=== PATIENT | female | born 1975 | race Caucasian/White ===

== ENCOUNTER 2019-02-23 14:31 | Emergency (ER) | payer OTHER ==
[2019-02-23] MEDS ORDERED: Acetaminophen/HYDROcodone 325-5 MG Tab PO ONE (14:32)
[2019-02-23] MEDS ORDERED: Ondansetron 4 MG Tab.DIS PO ONE (14:32)
--- NOTE | 2019-02-23 15:00 | EDM.PDOC ---
ED HPI GENERAL MEDICAL PROBLEM - General Chief Complaint: Back Pain or Injury Stated Complaint: FALL, NECK, BACK PAIN Time Seen by Provider: 02/23/19 14:53 Source of Information: Reports: Patient, EMS History Limitations: Reports: No Limitations - History of Present Illness Onset: Today Onset Date: 02/23/19 Onset Time: 02:00 Location: Reports: Back Quality: Reports: Ache, Sharp, Throbbing Severity: Moderate Improves with: Reports: None Worsens with: Reports: Movement Associated Symptoms: Reports: No Other Symptoms Posterior Neck Pain Score (Numeric/FACES): 8 - Related Data Allergies Allergy/AdvReac Type Severity Reaction Status Date / Time sulfamethoxazole Allergy Renal Verified 02/23/19 14:49 [From Bactrim] Insufficiency trimethoprim [From Bactrim] Allergy Renal Verified 02/23/19 14:49 Insufficiency Home Meds: Home Meds Devil's Claw Extract [Devil's Claw] 10 mg PO BID 02/23/19 [History] ED ROS GENERAL - Review of Systems Review Of Systems: See Below Constitutional: Reports: No Symptoms HEENT: Reports: No Symptoms Respiratory: Reports: No Symptoms Cardiovascular: Reports: No Symptoms Endocrine: Reports: No Symptoms GI/Abdominal: Reports: No Symptoms Musculoskeletal: Reports: Neck Pain, Back Pain, Joint Pain (right shoulder) Skin: Reports: No Symptoms Neurological: Reports: No Symptoms Psychiatric: Reports: No Symptoms Hematologic/Lymphatic: Reports: No Symptoms ED EXAM, UPPER BACK/NECK PAIN - Physical Exam Exam: See Below Exam Limited By: No Limitations General Appearance: Alert, WD/WN, No Apparent Distress Eye Exam: Bilateral Eye: EOMI, PERRL Ears Exam: Normal External Exam, Normal Canal, Hearing Grossly Normal, Normal TMs Nose Exam: Normal Inspection, Normal Mucousa Throat/Mouth Exam: Normal Inspection Head Exam: Atraumatic, Normocephalic Neck Exam: Full Range of Motion, Normal Alignment, Normal Inspection, Paraspinous Muscle Tender Nexus Criteria: No: Posterior, Midline Cervical Tenderness, Evidence of Intoxication, Altered Level of Consciousness, Focal Neurological Deficit, Painful Distraction Injuries Cardiovascular/Respiratory: Regular Rate, Rhythm, No M/R/G, Normal Peripheral Pulses, No JVD, Normal Breath Sounds, No Respiratory Distress GI/Abdominal: Normal Bowel Sounds, Soft, Non-Tender Back Exam: Paraspinal Tenderness (thorasic and cervical spine) Extremities: Normal Inspection, Normal Range of Motion, Normal Capillary Refill , Other (right shoulder tenderness) Neurologic: No Motor/Sensory Deficits, Alert, Normal Mood/Affect, Oriented x 3 DTR: 4+: Patella (R), Patella (L), Achilles (R), Achilles (L) Psychiatric: Normal Affect, Normal Mood Skin Exam: Normal Color, Warm/Dry Course - Vital Signs Last Recorded V/S: Last Vital Signs Temp 97.1 F 02/23/19 14:46 Pulse 101 H 02/23/19 14:46 Resp 16 02/23/19 14:46 BP 124/85 02/23/19 14:46 Pulse Ox 96 02/23/19 14:46 - Orders/Labs/Meds Orders: Active Orders 24 hr Category Date Time Status Cervical Spine 2V or 3V [CR] Stat Exams 02/23/19 15:07 Taken Shoulder Comp Lt [CR] Stat Exams 02/23/19 15:08 Taken Thoracic Spine 2V [CR] Stat Exams 02/23/19 15:08 Taken Meds: Medications Discontinued Medications Generic Name Dose Route Start Last Admin Trade Name Michaela PRN Reason Stop Dose Admin Morphine Sulfate 4 mg 02/23/19 15:09 02/23/19 15:18 Morphine SUBCUT 02/23/19 15:10 4 mg ONETIME ONE Administration Ondansetron HCl 4 mg 02/23/19 15:09 02/23/19 15:18 Zofran Odt PO 02/23/19 15:10 4 mg ONETIME ONE Administration - Radiology Interpretation Free Text/Narrative:: Xrays of the shoulder and the t-spine all negative per radiology reports. patient made aware of the findings. Departure - Departure Time of Disposition: 16:55 Disposition: Home, Self-Care 01 Condition: Good Clinical Impression: Thoracic sprain, Shoulder sprain Fall Qualifiers: Encounter type: initial encounter Qualified Code(s): W19.XXXA - Unspecified fall, initial encounter - Discharge Information *PRESCRIPTION DRUG MONITORING PROGRAM REVIEWED*: Not Applicable *COPY OF PRESCRIPTION DRUG MONITORING REPORT IN PATIENT ISAAC: Not Applicable Instructions: Muscle Strain, [id number], Back Exercises, [id number], Shoulder Sprain, Pain Medicine Instructions, [id number] Referrals: Bhavna Law PA-C [ED Midlevel Provider] - Forms: ED Department Discharge Additional Instructions: Use Ice to the sore area for 3 days then heat. Use back pain exercises. Use [place] for pain do not drive or mix with alcohol. Use Motrin 600mg every -8 hours for pain with the norco. See Bhavna GUERRERO for follow up if still painful in 7-10days work note for tomorrow Return if worse. - My Orders Last 24 Hours: My Active Orders 02/23/19 15:07 Cervical Spine 2V or 3V [CR] Stat 02/23/19 15:08 Shoulder Comp Lt [CR] Stat Thoracic Spine 2V [CR] Stat - Assessment/Plan Last 24 Hours: My Active Orders 02/23/19 15:07 Cervical Spine 2V or 3V [CR] Stat 02/23/19 15:08 Shoulder Comp Lt [CR] Stat Thoracic Spine 2V [CR] Stat Plan: Patient given morphine SQ in ER controlled pain Told of negative xrays and work noted given for tomorrow. Told to f/u with bhavna GUERRERO for pain greater than 10 days.
[2019-02-23] MEDS: Ondansetron 4 MG Tab.DIS PO ONE (15:18)
[2019-02-23] MEDS: Morphine 4 MG/ML Syringe SUBCUT ONE (15:18)
[2019-02-23] MEDS: Take Home: Ondansetron 4 MG Tab.DIS, 2 Tab Pack PO ONE (17:13)
[2019-02-23] MEDS: Take Home: Acetaminophen/HYDROcodone 325-5 MG, 2 Tab Pack PO ONE (17:13)
[2019-02-23] MEDS ORDERED: [UNRECOGNIZED DRUG - OTHER] PO SCH (20:00)
== END 2019-02-23 17:10 | disposition home or self-care (01) ==
LOC: CC.ED 14:31
DX: S23.3XXA Sprain of ligaments of thoracic spine, initial encounter (principal); S43.401A Unspecified sprain of right shoulder joint, initial encounter; Z88.2 Allergy status to sulfonamides; Z88.1 Allergy status to other antibiotic agents; X58.XXXA Exposure to other specified factors, initial encounter
CPT/HCPCS: 72040; 72070; 73030-LT; 96372; 99284-25; A9270-GY; J2270

== ENCOUNTER 2019-10-24 06:50 | Day surgery (SDC) | payer MEDICAID ==
[2019-10-24] MEDS ORDERED: ceFAZolin 1 GM Vial IVPUSH STA (07:22)
[2019-10-24] MEDS: Lactated Ringers 1,000 ML IV SCH ×2 (07:42→12:11)
[2019-10-24] MEDS ORDERED: Bupivacaine 0.5%/EPINEPHrine 1:200,000 10 ML SDV ONE (08:32)
[2019-10-24] MEDS ORDERED: Ondansetron 4 MG/2 ML SDV IVPUSH PRN (09:26)
[2019-10-24] MEDS ORDERED: Sodium Chloride 0.9% 10 ML Syringe FLUSH PRN (09:31)
--- NOTE | 2019-10-24 13:05 | OR ---
DATE OF OPERATION: 10/24/2019 PREOPERATIVE DIAGNOSIS: VENTRAL HERNIA. POSTOPERATIVE DIAGNOSIS: VENTRAL HERNIA. SURGEON: Domingo Greer MD PROCEDURE: OPEN REPAIR OF VENTRAL HERNIA. ANESTHESIA: General. ESTIMATED BLOOD LOSS: Minimum. SPECIMEN: None. FINDINGS: A 3 cm ventral defect just superior to the umbilicus, consistent with a ventral hernia. The hernia sac contents contained omentum. INDICATIONS: This 44-year-old female has a symptomatic ventral hernia. DESCRIPTION OF PROCEDURE: After adequate preparation, a longitudinal incision was made over the bulge area superior to the umbilicus. This was carried down to the hernia sac. This was identified and the hernia sac dissected free from the surrounding subcutaneous tissue. I did have to incise the wound slightly and free it up from the fascial margins to be able to reduce the omentum. This was able to be reduced without difficulty then. The wound was closed in a transverse fashion using double-stranded #1 PDS for buttress sutures and permanent sutures were 0 prolene in a transverse fashion also. This seemed to adequately close this. She does have thin tissue, but I decided not to use mesh. The muscular layer and linea alba were infiltrated with 0.5% lidocaine with epinephrine. The subcutaneous tissue was closed with a 2-0 Vicryl and a 4- 0 Vicryl for the skin. BPB/DEISYL /[id number]
[2019-10-25] MEDS: Acetaminophen/oxyCODONE 325-5 MG Tab PO PRN ×2 (01:52→06:04)
--- NOTE | 2019-10-25 08:44 | PCM.SN ---
- Free Text/Narrative Note: Stable POD #1. Pain controlled. Wound clean and dry. Regular diet tolerated. Ambulated without assistance. Instructions given. ANTHONY Law as needed. Percocet #20 given for pain. Can discharge today.
== END 2019-10-25 09:30 | disposition home or self-care (01) ==
LOC: CC.SDS 06:50
PROVIDERS: ATTEND Surgery
DX: K43.9 Ventral hernia without obstruction or gangrene (principal); F41.9 Anxiety disorder, unspecified; F32.9 Major depressive disorder, single episode, unspecified; G43.909 Migraine, unspecified, not intractable, without status migrainosus; E78.2 Mixed hyperlipidemia; F17.210 Nicotine dependence, cigarettes, uncomplicated; Z88.2 Allergy status to sulfonamides; Z79.899 Other long term (current) drug therapy
CPT/HCPCS: 36415; 84703; A9270-GY; J0690; J2270; J7120

== ENCOUNTER 2020-06-07 18:37 | Emergency (ER) | payer MEDICAID ==
[2020-06-07] MEDS ORDERED: Metoclopramide 10 MG/2 ML SDV IVPUSH ONE (18:50)
[2020-06-07] MEDS ORDERED: diphenhydrAMINE 50 MG/ML SDV IVPUSH ONE (18:50)
[2020-06-07] MEDS ORDERED: Metoclopramide 10 MG/2 ML SDV IM ONE (18:50)
[2020-06-07] MEDS ORDERED: Ketorolac 30 MG/ML SDV IVPUSH ONE (18:51)
--- NOTE | 2020-06-07 18:56 | EDM.PDOC ---
ED HPI GENERAL MEDICAL PROBLEM - General Chief Complaint: General Stated Complaint: migraine Time Seen by Provider: 06/07/20 18:48 Source of Information: Reports: Patient History Limitations: Reports: No Limitations - History of Present Illness INITIAL COMMENTS - FREE TEXT/NARRATIVE: Patient to the emergency department where she advises she has had a migraine for the past hour and a half. The patient advised that she is out of her normal migraine medicine. The patient advises that she did take a Fioricet without relief of her symptoms. Denies any change in vision she denies any ear, nose, throat symptoms denies any chest pain pressure heaviness denies any palpitations irregular heartbeat she has had some nausea no vomiting no diarrhea denies any abdominal pain denies any calf pain redness or swelling. The patient advises again that this is her normal progression of migraine. Onset: Today Duration: Hour(s): Location: Reports: Head Quality: Reports: Ache Severity: Moderate Improves with: Reports: None Worsens with: Reports: None Associated Symptoms: Reports: Headaches, Nausea/Vomiting (Nausea without vomiting). Denies: Shortness of Breath Treatments [employer]: Reports: Other (see below) (Fioricet) Headache Pain Score (Numeric/FACES): 8 - Related Data Allergies Allergy/AdvReac Type Severity Reaction Status Date / Time sulfamethoxazole Allergy Renal Verified 06/07/20 18:39 [From Bactrim] Insufficiency trimethoprim [From Bactrim] Allergy Renal Verified 06/07/20 18:39 Insufficiency Home Meds: Home Meds Butalb/Acetaminophen/Caffeine [Gjloyf-[id number] 50-325-40] 1 - 2 tab PO TID PRN 10/22/19 [History] Cyclobenzaprine HCl 10 mg PO DAILY 10/22/19 [History] LORazepam 1 mg PO DAILY 10/22/19 [History] Nabumetone [Relafen Ds] 500 mg PO DAILY 10/22/19 [History] Sertraline [Zoloft] 150 mg PO DAILY 10/22/19 [History] Topiramate [Topamax] 100 mg PO DAILY 10/22/19 [History] atorvaSTATin Calcium [Atorvastatin Calcium] 20 mg PO DAILY 10/22/19 [History] busPIRone HCl [Buspirone HCl] 15 mg PO BID 10/22/19 [History] Past Medical History Cardiovascular History: Reports: High Cholesterol Respiratory History: Reports: Other (See Below) Other Respiratory History: SEASONAL ALLERGIES Gastrointestinal History: Reports: Other (See Below) Other Gastrointestinal History: UMBILICAL HERNIA Genitourinary History: Reports: None [employer] History: Reports: Musculoskeletal History: Reports: Back Pain, Chronic Neurological History: Reports: Migraines Psychiatric History: Reports: Anxiety, Dementia - Infectious Disease History Infectious Disease History: Reports: Chicken Pox - Past Surgical History Cardiovascular Surgical History: Reports: None Respiratory Surgical History: Reports: None GI Surgical History: Reports: Cholecystectomy Female Surgical History: Reports: Section Neurological Surgical History: Reports: None Musculoskeletal Surgical History: Reports: None Social & Family History - Family History Family Medical History: Noncontributory - Tobacco Use Smoking Status *Q: Current Every Day Smoker Years of Tobacco use: 30 Packs/Tins Daily: 1 - Caffeine Use Caffeine Use: Reports: Coffee, Soda - Recreational Drug Use Recreational Drug Use: No ED ROS GENERAL - Review of Systems Review Of Systems: See Below Constitutional: Reports: No Symptoms HEENT: Reports: No Symptoms Respiratory: Reports: No Symptoms Cardiovascular: Reports: No Symptoms. Denies: Chest Pain, Claudication, Palpitations Endocrine: Reports: No Symptoms GI/Abdominal: Reports: No Symptoms, Nausea. Denies: Abdominal Pain, Vomiting : Reports: No Symptoms Musculoskeletal: Reports: No Symptoms. Denies: Neck Pain, Back Pain Skin: Reports: No Symptoms. Denies: Rash, Erythema Neurological: Reports: Headache. Denies: Confusion, Dizziness, Numbness, Paresthesia, Tingling, Trouble Speaking, Difficulty Walking, Weakness, Change in Speech, Gait Disturbance Psychiatric: Reports: No Symptoms ED EXAM, GENERAL - Physical Exam Exam: See Below Exam Limited By: No Limitations General Appearance: Alert, WD/WN, No Apparent Distress Ears: Normal External Exam Nose: Normal Inspection Throat/Mouth: Normal Inspection, Normal Voice, No Airway Compromise Head: Atraumatic, Normocephalic Neck: Normal Inspection, Supple, Non-Tender, Full Range of Motion Respiratory/Chest: No Respiratory Distress, Lungs Clear, Normal Breath Sounds, Chest Non-Tender Cardiovascular: Normal Peripheral Pulses, Regular Rate, Rhythm, No Murmur Peripheral Pulses: 2+: Radial (L), Radial (R) GI/Abdominal: Soft, Non-Tender Back Exam: Normal Inspection, Full Range of Motion Extremities: Normal Inspection, Normal Range of Motion, Non-Tender, Normal Capillary Refill. No: Leg Pain Neurological: Alert, Oriented, CN II-XII Intact, Normal Cognition, Normal Gait, No Motor/Sensory Deficits Psychiatric: Normal Affect, Normal Mood Skin Exam: Warm, Dry, Intact, Normal Color Course - Vital Signs Text/Narrative:: The patient was evaluated in the emergency department, the patient was given a typical migraine cocktail. The patient has had some relief from this headache with the treatment plan. The patient be discharged home she will be advised to refill her medication as she advises that she will be able to do this tomorrow. She is advised to take the medication as prescribed. She is advised to return emergency department sooner if worse or any problems she is also advised to follow-up the family doctor as needed Last Recorded V/S: Last Vital Signs Temp 37.0 C 06/07/20 18:38 Pulse 104 H 06/07/20 18:38 Resp 18 06/07/20 18:38 BP 130/71 06/07/20 18:38 Pulse Ox 99 06/07/20 18:38 - Orders/Labs/Meds Meds: Medications Discontinued Medications Generic Name Dose Route Start Last Admin Trade Name Michaela PRN Reason Stop Dose Admin Diphenhydramine HCl 25 mg 06/07/20 18:50 06/07/20 19:04 Benadryl IVUSH 06/07/20 18:51 25 mg ONETIME ONE Administration Ketorolac Tromethamine 30 mg 06/07/20 18:51 06/07/20 19:15 Toradol IVPUSH 06/07/20 18:52 30 mg ONETIME ONE Administration Metoclopramide HCl 10 mg 06/07/20 18:50 06/07/20 19:09 Reglan IVPUSH 06/07/20 18:51 10 mg ONETIME ONE Administration Departure - Departure Time of Disposition: 19:25 Disposition: Home, Self-Care 01 Condition: Good Clinical Impression: Migraine headache Qualifiers: Migraine type: unspecified Intractability: not intractable - Discharge Information *PRESCRIPTION DRUG MONITORING PROGRAM REVIEWED*: Not Applicable *COPY OF PRESCRIPTION DRUG MONITORING REPORT IN PATIENT ISAAC: Not Applicable Instructions: Recurrent Migraine Headache, [id number] Forms: ED Department Discharge Additional Instructions: supervisor residential your medication from the pharmacy as discussed tomorrow Take all your medication as prescribed Follow-up with your family doctor as needed Return to the emergency department as needed Sepsis Event Note (ED) - Evaluation Sepsis Screening Result: No Definite Risk - Focused Exam Vital Signs: Vital Signs Temp Pulse Resp BP Pulse Ox 06/07/20 18:38 37.0 C 104 H 18 130/71 99 - Problem List & Annotations (1) Migraine headache SNOMED Code(s): 89961562 Code(s): G43.909 - MIGRAINE, UNSP, NOT INTRACTABLE, WITHOUT STATUS MIGRAINOSUS Status: Acute Priority: Medium Current Visit: No Qualifiers: Migraine type: unspecified Intractability: not intractable - Problem List Review Problem List Initiated/Reviewed/Updated: Yes - Assessment/Plan Plan: The patient's past medical history, past surgical history, social history and past family medical history was reviewed see the nursing notes for complete details
== END 2020-06-07 19:30 | disposition home or self-care (01) ==
LOC: CC.ED 18:37
DX: G43.909 Migraine, unspecified, not intractable, without status migrainosus (principal); E78.00 Pure hypercholesterolemia, unspecified; F41.9 Anxiety disorder, unspecified; F17.210 Nicotine dependence, cigarettes, uncomplicated; Z88.2 Allergy status to sulfonamides; Z79.899 Other long term (current) drug therapy
CPT/HCPCS: 96374; 96375; 99283-25; J1200; J1885; J2765

== ENCOUNTER 2020-10-04 14:30 | Emergency (ER) | payer MEDICAID ==
[2020-10-04] MEDS ORDERED: Ondansetron 4 MG Tab.DIS ONE (14:50)
[2020-10-04] MEDS ORDERED: Ondansetron 4 MG Tab.DIS PO ONE (15:08)
--- NOTE | 2020-10-04 15:14 | EDM.PDOC ---
ED HPI GENERAL MEDICAL PROBLEM - General Chief Complaint: Gastrointestinal Problem Stated Complaint: vomiting Time Seen by Provider: 10/04/20 14:58 Source of Information: Reports: Patient History Limitations: Reports: No Limitations - History of Present Illness INITIAL COMMENTS - FREE TEXT/NARRATIVE: This patient is a 45 year old female that presents to the ER. Patient reports that for about 3 weeks having a productive cough. She reports that she also has had frontal headache on and off again for 3 weeks. Patient reports that it feels like a sinus headache with pressure in her sinus. Patient reports then yesterday she started with nausea and vomiting. She reports she vomiting a lot yesterday. She reports today she has vomited 3 times. She reports that she is still a lit tle nauseated, but is feeling a little better today from the vomiting. She reports she was going to go to work today, but was told she needed a doctors note to return to work, so this is reason for coming to the ER today. Onset Date: 10/03/20 Duration: Day(s): (2) Severity: Mild Improves with: Reports: None Worsens with: Reports: None Associated Symptoms: Reports: Confusion, Chest Pain, Cough, cough w sputum, Headaches, Nausea/Vomiting. Denies: Diaphoresis, Fever/Chills, Loss of Appetite, Malaise, Rash, Seizure, Shortness of Breath, Syncope, Weakness Chest Pain Score (Numeric/FACES): 3 - Related Data Allergies Allergy/AdvReac Type Severity Reaction Status Date / Time sulfamethoxazole Allergy Renal Verified 10/04/20 14:34 [From Bactrim] Insufficiency trimethoprim [From Bactrim] Allergy Renal Verified 10/04/20 14:34 Insufficiency Home Meds: Home Meds Butalb/Acetaminophen/Caffeine [[id number] 50-325-40] 1 - 2 tab PO TID PRN 10/22/19 [History] Cyclobenzaprine HCl 10 mg PO DAILY 10/22/19 [History] LORazepam 1 mg PO DAILY PRN 10/22/19 [History] Sertraline [Zoloft] 150 mg PO DAILY 10/22/19 [History] Topiramate [Topamax] 100 mg PO DAILY 10/22/19 [History] atorvaSTATin Calcium [Atorvastatin Calcium] 40 mg PO DAILY 10/22/19 [History] busPIRone HCl [Buspirone HCl] 15 mg PO BID 10/22/19 [History] Cefdinir [Omnicef] 300 mg PO BID 10 Days #20 cap 10/04/20 [Rx] Fluconazole [Diflucan] 150 mg PO Q72H #2 tablet 10/04/20 [Rx] Ondansetron [Zofran ODT] 4 mg PO Q6H PRN #12 tab.dis 10/04/20 [Rx] Past Medical History Cardiovascular History: Reports: High Cholesterol Respiratory History: Reports: Other (See Below) Other Respiratory History: SEASONAL ALLERGIES Gastrointestinal History: Reports: Other (See Below) Other Gastrointestinal History: UMBILICAL HERNIA Genitourinary History: Reports: None 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: Musculoskeletal History: Reports: Back Pain, Chronic Neurological History: Reports: Migraines Psychiatric History: Reports: Anxiety, Depression - Infectious Disease History Infectious Disease History: Reports: Chicken Pox - Past Surgical History Cardiovascular Surgical History: Reports: None Respiratory Surgical History: Reports: None GI Surgical History: Reports: Cholecystectomy, Hernia Repair/Other Female Surgical History: Reports: Section Neurological Surgical History: Reports: None Musculoskeletal Surgical History: Reports: None Social & Family History - Family History Family Medical History: No Pertinent Family History - Tobacco Use Tobacco Use Status *Q: Current Every Day Tobacco User Years of Tobacco use: 30 Packs/Tins Daily: 0.5 - Caffeine Use Caffeine Use: Reports: Coffee, Energy Drinks, Soda - Recreational Drug Use Recreational Drug Use: No ED ROS GENERAL - Review of Systems Review Of Systems: See Below Constitutional: Reports: No Symptoms HEENT: Reports: Rhinitis, Sinus Problem Respiratory: Reports: Pleuritic Chest Pain (pain when coughing and taking big deep breaths), Cough, Sputum. Denies: Shortness of Breath Cardiovascular: Denies: Chest Pain (pain is with taking big deep breaths and coughing. ) Endocrine: Reports: No Symptoms GI/Abdominal: Reports: Nausea, Vomiting. Denies: Abdominal Pain, Constipation, Diarrhea : Reports: No Symptoms Musculoskeletal: Reports: No Symptoms Skin: Reports: No Symptoms Neurological: Reports: Headache (frontal. Sinus Pressure) Psychiatric: Reports: No Symptoms Hematologic/Lymphatic: Reports: No Symptoms Immunologic: Reports: No Symptoms ED EXAM, GENERAL - Physical Exam Exam: See Below Exam Limited By: No Limitations General Appearance: Alert, WD/WN, No Apparent Distress Eye Exam: Bilateral Eye: Normal Inspection, PERRL Ears: Normal External Exam, Normal Canal, Hearing Grossly Normal, Normal TMs Ear Exam: Bilateral Ear: Auricle Normal, Canal Normal, TM normal Nose: Normal Inspection, Normal Mucosa, No Blood Throat/Mouth: Normal Inspection, Normal Lips, Normal Teeth, Normal Gums, Normal Oropharynx, Normal Voice, No Airway Compromise Head: Atraumatic, Normocephalic, Sinus Tenderness (frontal), Other (Frontal sinus failed light illumination) Neck: Normal Inspection, Supple, Non-Tender, Full Range of Motion Respiratory/Chest: No Respiratory Distress, Lungs Clear, Normal Breath Sounds, No Accessory Muscle Use, Chest Non-Tender Cardiovascular: Normal Peripheral Pulses, Regular Rate, Rhythm, No Edema, No Gallop, No JVD, No Murmur, No Rub Peripheral Pulses: 2+: Radial (L), Radial (R), Posterior Tibial (L), Posterior Tibial (R) GI/Abdominal: Normal Bowel Sounds, Soft, Non-Tender, No Organomegaly, No Distention, No Abnormal Bruit, No Mass, Pelvis Stable Back Exam: Normal Inspection, Full Range of Motion. No: CVA Tenderness (L), CVA Tenderness (R) Extremities: Normal Inspection, Normal Range of Motion, Non-Tender, No Pedal Edema, Normal Capillary Refill Neurological: Alert, Oriented, Normal Cognition, Normal Gait, No Motor/Sensory Deficits Psychiatric: Normal Affect, Normal Mood Skin Exam: Warm, Dry, Intact, Normal Color, No Rash Lymphatic: No Adenopathy #1 Interpretation EKG Date: 10/04/20 Time: 14:54 Rhythm: NSR Rate (Beats/Min): 96 [place]: Normal P-Wave: Present QRS: Normal ST-T: Normal QT: Normal Comparison: NA - No Prior EKG Course - Vital Signs Last Recorded V/S: Last Vital Signs Temp 98 F 10/04/20 14:30 Pulse 102 H 10/04/20 14:30 Resp 18 10/04/20 14:30 BP 157/89 H 10/04/20 14:30 Pulse Ox 98 10/04/20 14:30 - Orders/Labs/Meds Orders: Active Orders 24 hr Category Date Time Status EKG Documentation Completion [RC] STAT Care 10/04/20 14:43 Active Chest 2V [CR] Stat Exams 10/04/20 14:43 Taken Labs: Laboratory Tests 10/04/20 10/04/20 10/04/20 Range/Units 14:43 14:45 14:45 WBC 10.8 H (5.0-10.0) 10^3/uL RBC 5.07 (4.00-5.50) 10^6/uL Hgb 15.6 (12.0-16.0) g/dL Hct 48.6 H (37.0-47.0) % MCV 95.9 H (82.0-94.0) fL MCH 30.8 (27.0-32.0) pg MCHC 32.1 L (33.0-38.0) g/dL RDW Coeff of Karis 15.0 (11.0-15.0) % Plt Count 305 (150-400) 10^3/uL Neut % (Auto) 65.1 (35-85) % Lymph % (Auto) 26.1 (10-55) % [place] % (Auto) 5.2 (0-16) % Eos % (Auto) 3.0 (0-5) % Baso % (Auto) 0.6 (0-3) % Neut # (Auto) 7.05 H (1.80-7.00) 10^3/uL Lymph # (Auto) 2.82 (1.00-4.80) 10^3/uL [place] # (Auto) 0.56 (0.00-0.80) 10^3/uL Eos # (Auto) 0.32 (0.00-0.45) 10^3/uL Baso # (Auto) 0.06 10^3/uL PT 10.0 (9.7-12.3) SEC INR 0.99 (0.92-1.18) APTT 23.2 (23.2-32.3) SEC Sodium (136-145) mEq/L Potassium (3.5-5.0) mEq/L Chloride (98-106) mEq/L Carbon Dioxide (21-32) mmol/L BUN (7-18) mg/dL Creatinine (0.6-1.0) mg/dL Est Cr Clr Drug Dosing mL/min Estimated GFR (MDRD) (>=60) mL/min Glucose (75-99) mg/dL Lactic Acid (0.4-2.0) mmol/L Calcium (8.4-10.1) mg/dL Total Bilirubin (0.0-1.0) mg/dL AST (15-37) U/L ALT (12-78) U/L Alkaline Phosphatase (46-116) U/L Lactate Dehydrogenase (100-190) U/L Creatine Kinase (21-215) U/L Troponin I (0.00-0.06) ng/mL NT-Pro-B Natriuret Pep (0-1000) pg/mL Total Protein (6.4-8.2) g/dL Albumin (3.4-5.0) g/dL Amylase (25-115) U/L Lipase (73-393) U/L Urine Color (YELLOW) Urine Appearance (CLEAR) Urine pH (4.5-8.0) Ur Specific [place] (1.003-1.020) Urine Protein (NEGATIVE) mg/dL Urine Glucose (UA) (NEGATIVE) mg/dL Urine Ketones (NEGATIVE) mg/dL Urine Occult Blood (NEGATIVE) Urine Nitrite (NEGATIVE) Urine Bilirubin (NEGATIVE) Urine Urobilinogen (0.2-1.0) EU/dL Ur Leukocyte Esterase (NEGATIVE) Urine RBC (0-5) /HPF Urine WBC (0-5) /HPF Ur Epithelial Cells (NOT SEEN) /HPF Urine Bacteria (NOT SEEN) /HPF Urine Mucus (NOT SEEN) /HPF Urine Yeast (NOT SEEN) /HPF Urinalysis Comment SARS CoV-2 RNA Rapid VENITA Negative (NEGATIVE) 10/04/20 10/04/20 10/04/20 Range/Units 14:45 14:45 15:09 WBC (5.0-10.0) 10^3/uL RBC (4.00-5.50) 10^6/uL Hgb (12.0-16.0) g/dL Hct (37.0-47.0) % MCV (82.0-94.0) fL MCH (27.0-32.0) pg MCHC (33.0-38.0) g/dL RDW Coeff of Karis (11.0-15.0) % Plt Count (150-400) 10^3/uL Neut % (Auto) (35-85) % Lymph % (Auto) (10-55) % [place] % (Auto) (0-16) % Eos % (Auto) (0-5) % Baso % (Auto) (0-3) % Neut # (Auto) (1.80-7.00) 10^3/uL Lymph # (Auto) (1.00-4.80) 10^3/uL [place] # (Auto) (0.00-0.80) 10^3/uL Eos # (Auto) (0.00-0.45) 10^3/uL Baso # (Auto) 10^3/uL PT (9.7-12.3) SEC INR (0.92-1.18) APTT (23.2-32.3) SEC Sodium 138 (136-145) mEq/L Potassium 3.8 (3.5-5.0) mEq/L Chloride 102 (98-106) mEq/L Carbon Dioxide 25 (21-32) mmol/L BUN 16 (7-18) mg/dL Creatinine 0.7 (0.6-1.0) mg/dL Est Cr Clr Drug Dosing 103.83 mL/min Estimated GFR (MDRD) > 60 (>=60) mL/min Glucose 134 H D (75-99) mg/dL Lactic Acid 1.9 (0.4-2.0) mmol/L Calcium 8.4 (8.4-10.1) mg/dL Total Bilirubin 0.3 (0.0-1.0) mg/dL AST 13 L (15-37) U/L ALT 28 (12-78) U/L Alkaline Phosphatase 109 (46-116) U/L Lactate Dehydrogenase 172 (100-190) U/L Creatine Kinase 42 (21-215) U/L Troponin I < 0.017 (0.00-0.06) ng/mL NT-Pro-B Natriuret Pep 66 (0-1000) pg/mL Total Protein 7.5 (6.4-8.2) g/dL Albumin 3.3 L (3.4-5.0) g/dL Amylase 62 (25-115) U/L Lipase 190 (73-393) U/L Urine Color [place] (YELLOW) Urine Appearance Slightly cloudy (CLEAR) Urine pH 5.5 (4.5-8.0) Ur Specific [place] >= 1.030 H (1.003-1.020) Urine Protein Trace H (NEGATIVE) mg/dL Urine Glucose (UA) Negative (NEGATIVE) mg/dL Urine Ketones Negative (NEGATIVE) mg/dL Urine Occult Blood Negative (NEGATIVE) Urine Nitrite Negative (NEGATIVE) Urine Bilirubin Negative (NEGATIVE) Urine Urobilinogen 0.2 (0.2-1.0) EU/dL Ur Leukocyte Esterase Negative (NEGATIVE) Urine RBC Not seen (0-5) /HPF Urine WBC 0-5 (0-5) /HPF Ur Epithelial Cells Moderate H (NOT SEEN) /HPF Urine Bacteria Moderate H (NOT SEEN) /HPF Urine Mucus Many H (NOT SEEN) /HPF Urine Yeast Few H (NOT SEEN) /HPF Urinalysis Comment See note SARS CoV-2 RNA Rapid VENITA (NEGATIVE) Meds: Medications Discontinued Medications Generic Name Dose Route Start Last Admin Trade Name Freq PRN Reason Stop Dose Admin Ceftriaxone Sodium 1 gm 10/04/20 16:01 Rocephin IM 10/04/20 16:02 ONETIME ONE Lidocaine HCl 1 ml 10/04/20 16:01 Xylocaine-Mpf 1% INJECT 10/04/20 16:02 NOW STA Ondansetron HCl 4 mg 10/04/20 15:08 10/04/20 15:12 Zofran Odt PO 10/04/20 15:09 4 mg ONETIME ONE Administration Ondansetron HCl 3 packet 10/04/20 15:29 10/04/20 15:38 Take Home: Ondansetron Odt 4 Mg, 2 Tab Pack PO 10/04/20 15:30 2 packet ONETIME ONE Administration - Radiology Interpretation Free Text/Narrative:: CXR: no acute findings Departure - Departure Time of Disposition: 15:57 Disposition: Home, Self-Care 01 Condition: Fair Clinical Impression: Viral enteritis, Yeast infection Acute sinusitis Qualifiers: Sinusitis location: frontal Recurrence: non-recurrent Qualified Code(s): J01.10 - Acute frontal sinusitis, unspecified - Discharge Information *PRESCRIPTION DRUG MONITORING PROGRAM REVIEWED*: Not Applicable *COPY OF PRESCRIPTION DRUG MONITORING REPORT IN PATIENT ISAAC: Not Applicable Prescriptions: Fluconazole [Diflucan] 150 mg PO Q72H #2 tablet Cefdinir [Omnicef] 300 mg PO BID 10 Days #20 cap Ondansetron [Zofran ODT] 4 mg PO Q6H PRN #12 tab.dis PRN Reason: Nausea/Vomiting Instructions: Viral Gastroenteritis, Adult, Sinusitis, Adult, [id number] Referrals: PCP,None [Primary Care Provider] - Forms: ED Department Discharge Additional Instructions: Followup with your primary care provider this week Return to the ER for worsening of condition or any emergent concerns Increase fluid intake Zofran 4mg 1 pill under the tongue every 4 hours as needed for nausea/vomiting #4 take home: #12 sent to pharmacy Cefdinir 300mg 1 pill twice a day for 10 days #20 no refill Sent to pharmacy Diflucan 150mg 1 pill day one, then 1 pill day 3 #2 no refill Sent to pharmacy Sepsis Event Note (ED) - Evaluation Sepsis Screening Result: No Definite Risk - Focused Exam Vital Signs: Vital Signs Temp Pulse Resp BP Pulse Ox 10/04/20 14:30 98 F 102 H 18 157/89 H 98 - My Orders Last 24 Hours: My Active Orders 10/04/20 14:43 EKG Documentation Completion [RC] STAT Chest 2V [CR] Stat - Assessment/Plan Last 24 Hours: My Active Orders 10/04/20 14:43 EKG Documentation Completion [RC] STAT Chest 2V [CR] Stat Plan: PLEASE SEE RN NOTE FOR PFSH
[2020-10-04 15:15] LABS: CHLORIDE,CL 102 mEq/L (98-106); SODIUM,NA 138 mEq/L (136-145)
[2020-10-04 15:17] LABS: PTT,PARTIAL THROMBOPLSTIN TIME 23.2 SEC (23.2-32.3)
[2020-10-04] MEDS ORDERED: Take Home: Ondansetron 4 MG Tab.DIS, 2 Tab Pack PO ONE (15:29)
[2020-10-04] MEDS ORDERED: cefTRIAXone 1 GM Vial IM ONE (16:01)
[2020-10-04] MEDS ORDERED: Lidocaine 1% 30 ML SDV INJECT STA (16:01)
== END 2020-10-04 16:15 | disposition home or self-care (01) ==
LOC: CC.ED 14:30
DX: J01.10 Acute frontal sinusitis, unspecified (principal); A08.4 Viral intestinal infection, unspecified; B37.9 Candidiasis, unspecified; E78.00 Pure hypercholesterolemia, unspecified; F41.9 Anxiety disorder, unspecified; F32.9 Major depressive disorder, single episode, unspecified; F17.210 Nicotine dependence, cigarettes, uncomplicated; Z20.828 Contact with and (suspected) exposure to other viral communicable diseases; Z88.2 Allergy status to sulfonamides; Z88.1 Allergy status to other antibiotic agents; Z79.899 Other long term (current) drug therapy
CPT/HCPCS: 36415; 71046; 80053; 81001; 82150; 82550; 83605; 83615; 83690; 83880; 84484; 85025; 85610; 85730; 93005; 96372; 99284-25; A9270-GY; J0696; J2001; U0002

== ENCOUNTER 2021-01-02 12:13 | Emergency (ER) | payer BC, MEDICAID ==
[2021-01-02] MEDS ORDERED: Morphine 4 MG/ML VIAL IVPUSH ONE (12:40)
[2021-01-02] MEDS ORDERED: Sodium Chloride 0.9% 1,000 ML IV ONE (12:40)
[2021-01-02] MEDS ORDERED: Ondansetron 4 MG/2 ML SDV IVPUSH STA (12:40)
[2021-01-02 12:48] LABS: CHLORIDE,CL 108 mEq/L (98-106); SODIUM,NA 146 mEq/L (136-145)
--- NOTE | 2021-01-02 12:49 | EDM.PDOC ---
ED HPI GENERAL MEDICAL PROBLEM - General Chief Complaint: Abdominal Pain Stated Complaint: RLQ abd pain Time Seen by Provider: 01/02/21 12:33 Source of Information: Reports: Patient History Limitations: Reports: No Limitations - History of Present Illness INITIAL COMMENTS - FREE TEXT/NARRATIVE: This patient is a 45 year old female that presents to the ER. Patient reports that since 8 days ago having RLQ abdominal pain. She reports the pain comes and goes. She reports the pain is sharp in nature. She reports that she was seen in clinic by PCP on Monday, sent to [place] to rule out appendix by US. Patent reports the US showed possible diverticulitis but no appendicitis. She reports she was put on Hydrocodone and abx. She reports the Hydrocodone was helping, but she is now out and now her abd pain is back again. She reports she was working today and her abdominal cazares was sharp and severe to the RLQ, she bent over in pain. Patient reports that she also has lower back pain for several months, and has been also having tingling and numbness down her both legs. She reports this pain does not feel like that. She also reports her lower back doese not hurt right now and she is not having any numbness down her legs now. She reports that she does not have fever, chest pain, shortness of breath, back pain, flank pain, urinary/bowel changes, nausea, vomiting, diarrhea. She reports history of having gallbladder removed and history of ovarian cysts. Onset Date: 12/25/20 Duration: Day(s): (8) Location: Reports: Abdomen Quality: Reports: Sharp Severity: Moderate Improves with: Reports: None Worsens with: Reports: None Associated Symptoms: Denies: Confusion, Chest Pain, Cough, cough w sputum, Diaphoresis, Fever/Chills, Headaches, Loss of Appetite, Malaise, Nausea/Vo miting, Rash, Seizure, Shortness of Breath, Syncope, Weakness Right Lower Abdomen Pain Score (Numeric/FACES): 9 - Related Data Allergies Allergy/AdvReac Type Severity Reaction Status Date / Time sulfamethoxazole Allergy Renal Verified 01/02/21 12:14 [From Bactrim] Insufficiency trimethoprim [From Bactrim] Allergy Renal Verified 01/02/21 12:14 Insufficiency Home Meds: Home Meds Butalb/Acetaminophen/Caffeine [Uterlx-Malbgjxa-Vziu 50-325-40] 1 - 2 tab PO TID PRN 10/22/19 [History] Cyclobenzaprine HCl 10 mg PO DAILY 10/22/19 [History] LORazepam 1 mg PO DAILY PRN 10/22/19 [History] Sertraline [Zoloft] 150 mg PO DAILY 10/22/19 [History] Topiramate [Topamax] 100 mg PO DAILY 10/22/19 [History] atorvaSTATin Calcium [Atorvastatin Calcium] 40 mg PO DAILY 10/22/19 [History] busPIRone HCl [Buspirone HCl] 15 mg PO BID 10/22/19 [History] Past Medical History Cardiovascular History: Reports: High Cholesterol Respiratory History: Reports: Other (See Below) Other Respiratory History: SEASONAL ALLERGIES Gastrointestinal History: Reports: Other (See Below) Other Gastrointestinal History: UMBILICAL HERNIA Genitourinary History: Reports: None 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: Reports: Polycystic Ovaries, Musculoskeletal History: Reports: Back Pain, Chronic Neurological History: Reports: Migraines Psychiatric History: Reports: Anxiety, Depression - Infectious Disease History Infectious Disease History: Reports: Chicken Pox - Past Surgical History Cardiovascular Surgical History: Reports: None Respiratory Surgical History: Reports: None GI Surgical History: Reports: Cholecystectomy, Hernia Repair/Other Female Surgical History: Reports: Section Neurological Surgical History: Reports: None Musculoskeletal Surgical History: Reports: None Social & Family History - Family History Family Medical History: No Pertinent Family History - Tobacco Use Tobacco Use Status *Q: Current Every Day Tobacco User Years of Tobacco use: 35 Packs/Tins Daily: 0.5 - Caffeine Use Caffeine Use: Reports: Coffee, Energy Drinks, Tea - Recreational Drug Use Recreational Drug Use: No ED ROS GENERAL - Review of Systems Review Of Systems: See Below Constitutional: Reports: No Symptoms HEENT: Reports: Sinus Problem (mild congestion). Denies: Dental Pain, Ear Discharge, Ear Pain, Nosebleed, Throat Pain, Throat Swelling Respiratory: Reports: Cough. Denies: Shortness of Breath, Wheezing, Pleuritic Chest Pain, Sputum, Hemoptysis Cardiovascular: Reports: No Symptoms Endocrine: Reports: No Symptoms GI/Abdominal: Reports: Abdominal Pain (RLQ). Denies: Black Stool, Bloody Stool, Constipation, Diarrhea, Decreased Appetite, Difficulty Swallowing, Distension, Nausea, Vomiting : Denies: Discharge, Dysuria, Flank Pain, Frequency, Hematuria, Incontinence, Irregular Menses, Pain, Urgency, Urinary Retention Musculoskeletal: Reports: No Symptoms Skin: Reports: No Symptoms Neurological: Reports: No Symptoms Psychiatric: Reports: No Symptoms Immunologic: Reports: No Symptoms ED EXAM, GI/ABD - Physical Exam Exam: See Below Exam Limited By: No Limitations General Appearance: Alert, WD/WN, No Apparent Distress Eyes: Bilateral: Normal Appearance Ears: Normal External Exam, Normal Canal, Hearing Grossly Normal, Normal TMs Nose: Normal Inspection, Normal Mucosa, No Blood Throat/Mouth: Normal Inspection, Normal Lips, Normal Teeth, Normal Gums, Normal Oropharynx, Normal Voice, No Airway Compromise Head: Atraumatic, Normocephalic Neck: Normal Inspection, Supple, Non-Tender, Full Range of Motion Respiratory/Chest: No Respiratory Distress, Lungs Clear, Normal Breath Sounds, No Accessory Muscle Use Cardiovascular: Normal Peripheral Pulses, Regular Rate, Rhythm, No Edema, No Gallop, No JVD, No Murmur, No Rub GI/Abdominal Exam: Normal Bowel Sounds, Soft, No Distention, Tender (RLQ), Other (obesity makes exam difficult, unabe to identify landmarks. ). No: Guarding, Rigid, Rebound, Abnormal Bowel Sounds (Female) Exam: Deferred Rectal (Female) Exam: Deferred Back Exam: Normal Inspection, Full Range of Motion, Decreased Range of Motion, Muscle Spasm, Paraspinal Tenderness, Vertebral Tenderness. No: CVA Tenderness (L), CVA Tenderness (R) Extremities: Normal Inspection, Normal Range of Motion, Non-Tender, No Pedal Edema, Normal Capillary Refill Neurological: Alert, Oriented, Normal Cognition, Normal Gait, No Motor/Sensory Deficits Psychiatric: Normal Affect, Normal Mood Skin Exam: Warm, Dry, Intact, Normal Color, No Rash Lymphatic: No Adenopathy Course - Vital Signs Last Recorded V/S: Last Vital Signs Temp 98.2 F 01/02/21 12:13 Pulse 89 01/02/21 12:13 Resp 18 01/02/21 12:13 BP 109/85 01/02/21 12:13 Pulse Ox 98 01/02/21 12:13 - Orders/Labs/Meds Orders: Active Orders 24 hr Category Date Time Status Abdomen Pelvis w Cont [CT] Stat Exams 01/02/21 12:41 Taken Labs: Laboratory Tests 02/01/02/21 01/02/21 Range/Units 12:20 12:20 12:32 WBC 9.6 (5.0-10.0) 10^3/uL RBC 4.54 (4.00-5.50) 10^6/uL Hgb 14.0 (12.0-16.0) g/dL Hct 43.0 (37.0-47.0) % MCV 94.7 H (82.0-94.0) fL MCH 30.8 (27.0-32.0) pg MCHC 32.6 L (33.0-38.0) g/dL RDW Coeff of Karis 14.5 (11.0-15.0) % Plt Count 294 (150-400) 10^3/uL Neut % (Auto) 62.3 (35-85) % Lymph % (Auto) 28.9 (10-55) % Mckenzie % (Auto) 5.3 (0-16) % Eos % (Auto) 3.1 (0-5) % Baso % (Auto) 0.4 (0-3) % Neut # (Auto) 5.95 (1.80-7.00) 10^3/uL Lymph # (Auto) 2.76 (1.00-4.80) 10^3/uL Mckenzie # (Auto) 0.51 (0.00-0.80) 10^3/uL Eos # (Auto) 0.30 (0.00-0.45) 10^3/uL Baso # (Auto) 0.04 10^3/uL Sodium (136-145) mEq/L Potassium (3.5-5.0) mEq/L Chloride (98-106) mEq/L Carbon Dioxide (21-32) mmol/L BUN (7-18) mg/dL Creatinine (0.6-1.0) mg/dL Est Cr Clr Drug Dosing mL/min Estimated GFR (MDRD) (>=60) mL/min Glucose (75-99) mg/dL Calcium (8.4-10.1) mg/dL Total Bilirubin (0.0-1.0) mg/dL AST (15-37) U/L ALT (12-78) U/L Alkaline Phosphatase (46-116) U/L C-Reactive Protein (0.2-0.8) mg/dL Total Protein (6.4-8.2) g/dL Albumin (3.4-5.0) g/dL Amylase (25-115) U/L Lipase (73-393) U/L Urine Color Yellow (YELLOW) Urine Appearance Clear (CLEAR) Urine pH 5.5 (4.5-8.0) Ur Specific Henderson >= 1.030 H (1.003-1.020) Urine Protein Negative (NEGATIVE) mg/dL Urine Glucose (UA) Negative (NEGATIVE) mg/dL Urine Ketones Negative (NEGATIVE) mg/dL Urine Occult Blood Negative (NEGATIVE) Urine Nitrite Negative (NEGATIVE) Urine Bilirubin Negative (NEGATIVE) Urine Urobilinogen 0.2 (0.2-1.0) EU/dL Ur Leukocyte Esterase Negative (NEGATIVE) Urine RBC Not seen (0-5) /HPF Urine WBC Not seen (0-5) /HPF Urine HCG, Qual Negative 01/02/21 Range/Units 12:32 WBC (5.0-10.0) 10^3/uL RBC (4.00-5.50) 10^6/uL Hgb (12.0-16.0) g/dL Hct (37.0-47.0) % MCV (82.0-94.0) fL MCH (27.0-32.0) pg MCHC (33.0-38.0) g/dL RDW Coeff of Karis (11.0-15.0) % Plt Count (150-400) 10^3/uL Neut % (Auto) (35-85) % Lymph % (Auto) (10-55) % Mckenzie % (Auto) (0-16) % Eos % (Auto) (0-5) % Baso % (Auto) (0-3) % Neut # (Auto) (1.80-7.00) 10^3/uL Lymph # (Auto) (1.00-4.80) 10^3/uL Mckenzie # (Auto) (0.00-0.80) 10^3/uL Eos # (Auto) (0.00-0.45) 10^3/uL Baso # (Auto) 10^3/uL Sodium 146 H (136-145) mEq/L Potassium 3.9 (3.5-5.0) mEq/L Chloride 108 H (98-106) mEq/L Carbon Dioxide 25 (21-32) mmol/L BUN 17 D (7-18) mg/dL Creatinine 0.8 (0.6-1.0) mg/dL Est Cr Clr Drug Dosing 87.70 mL/min Estimated GFR (MDRD) > 60 (>=60) mL/min Glucose 125 H D (75-99) mg/dL Calcium 9.0 (8.4-10.1) mg/dL Total Bilirubin 0.1 (0.0-1.0) mg/dL AST 24 (15-37) U/L ALT 31 (12-78) U/L Alkaline Phosphatase 128 H (46-116) U/L C-Reactive Protein 1.9 H (0.2-0.8) mg/dL Total Protein 7.2 (6.4-8.2) g/dL Albumin 3.3 L (3.4-5.0) g/dL Amylase 38 (25-115) U/L Lipase 112 (73-393) U/L Urine Color (YELLOW) Urine Appearance (CLEAR) Urine pH (4.5-8.0) Ur Specific Henderson (1.003-1.020) Urine Protein (NEGATIVE) mg/dL Urine Glucose (UA) (NEGATIVE) mg/dL Urine Ketones (NEGATIVE) mg/dL Urine Occult Blood (NEGATIVE) Urine Nitrite (NEGATIVE) Urine Bilirubin (NEGATIVE) Urine Urobilinogen (0.2-1.0) EU/dL Ur Leukocyte Esterase (NEGATIVE) Urine RBC (0-5) /HPF Urine WBC (0-5) /HPF Urine HCG, Qual Meds: Medications Discontinued Medications Generic Name Dose Route Start Last Admin Trade Name Freq PRN Reason Stop Dose Admin Hydrocodone Bitart/Acetaminophen 3 packet 01/02/21 14:21 Take Home: Acetaminophen/Hydrocod, 2 Tab Pack PO 01/02/21 14:22 ONETIME ONE Sodium Chloride 1,000 mls @ 1,000 mls/hr 01/02/21 12:40 01/02/21 12:49 Normal Saline IV 01/02/21 13:39 1,000 mls/hr .BOLUS ONE Administration Iopamidol 100 ml 01/02/21 13:02 01/02/21 13:16 Isovue-370 (76%) IVPUSH 01/02/21 13:03 100 ml ONETIME ONE Administration Ketorolac Tromethamine 30 mg 01/02/21 13:12 01/02/21 13:43 Toradol IVPUSH 01/02/21 13:13 30 mg ONETIME ONE Administration Ketorolac Tromethamine 3 packet 01/02/21 14:21 Take Home: Ketorolac 10 Mg, 4 Tab Pack PO 01/02/21 14:22 ONETIME ONE Morphine Sulfate 4 mg 01/02/21 12:40 01/02/21 12:49 Morphine IVPUSH 01/02/21 12:41 4 mg ONETIME ONE Administration Ondansetron HCl 4 mg 01/02/21 12:40 01/02/21 12:49 Zofran IVPUSH 01/02/21 12:41 4 mg NOW STA Administration - Radiology Interpretation Free Text/Narrative:: CT ABD/PELVIS with contrast: Diverticulitis sigmoid colon in left lower quadrant on prior exam is nearly completely resolved. No new or acute abnormalities. Other findings that need out patient pelvic US. Discussed with patient. CT Results Date: 01/02/21 CT Results Time: 14:15 - Re-Assessments/Exams Free Text/Narrative Re-Assessment/Exam: 01/02/21 13:21 Patient did report the Morphine helped some. Ordered Toradol to help pain. Departure - Departure Time of Disposition: 14:19 Disposition: Home, Self-Care 01 Condition: Fair Clinical Impression: Abdominal pain Qualifiers: Abdominal location: right lower quadrant Qualified Code(s): R10.31 - Right lower quadrant pain - Discharge Information *PRESCRIPTION DRUG MONITORING PROGRAM REVIEWED*: Yes *COPY OF PRESCRIPTION DRUG MONITORING REPORT IN PATIENT ISAAC: No Instructions: Abdominal Pain, Adult, [id number] Referrals: Belkis Platt NP [Primary Care Provider] - Forms: ED Department Discharge Additional Instructions: Followup with your primary care provider Out patient pelvis ultrasound to be done Return to the ER for worsening of condition or any emergent concerns such as increase in pain, vomiting, fever Continue previously prescribed antibiotic Toradol 10mg 1 pill every 6 hours as needed for pain #12 no refill Godley 5/325mg 1 pill every 6 hours as needed for pain #6 no refill take home: If Toradol is not helping Sepsis Event Note (ED) - Evaluation Sepsis Screening Result: No Definite Risk - Focused Exam Vital Signs: Vital Signs Temp Pulse Resp BP Pulse Ox 02/13/21 12:13 98.2 F 89 18 109/85 98 - My Orders Last 24 Hours: My Active Orders 01/02/21 12:41 Abdomen Pelvis w Cont [CT] Stat - Assessment/Plan Last 24 Hours: My Active Orders 01/02/21 12:41 Abdomen Pelvis w Cont [CT] Stat Plan: PLEASE SEE RN NOTE FOR PFSH
[2021-01-02] MEDS ORDERED: Iopamidol 755 Mg/ML 100 ML Bottle IVPUSH ONE (13:02)
[2021-01-02] MEDS ORDERED: Ketorolac 30 MG/ML SDV IVPUSH ONE (13:12)
[2021-01-02] MEDS ORDERED: Take Home: Acetaminophen/HYDROcodone 325-5 MG, 2 Tab Pack PO ONE (14:21)
[2021-01-02] MEDS ORDERED: Take Home: Ketorolac 10 MG Tab, 4 Tab Pack PO ONE (14:21)
== END 2021-01-02 14:40 | disposition home or self-care (01) ==
LOC: CC.ED 12:13
DX: R10.31 Right lower quadrant pain (principal); E78.00 Pure hypercholesterolemia, unspecified; Z88.2 Allergy status to sulfonamides; Z88.1 Allergy status to other antibiotic agents; Z79.899 Other long term (current) drug therapy; Z72.0 Tobacco use
CPT/HCPCS: 36415; 74177; 80053; 81001; 81025; 82150; 83690; 85025; 86140; 96374; 96375; 99284-25; A9270-GY; J1885; J2270; J2405; J7030; Q9967

== ENCOUNTER 2021-06-23 18:39 | Emergency (ER) | payer MEDICAID ==
--- NOTE | 2021-06-23 19:06 | EDM.PDOC ---
ED HPI GENERAL MEDICAL PROBLEM - General Chief Complaint: Allergic Reaction Stated Complaint: rash Time Seen by Provider: 06/23/21 18:55 Source of Information: Reports: Patient History Limitations: Reports: No Limitations - History of Present Illness INITIAL COMMENTS - FREE TEXT/NARRATIVE: States that she was started on gabapentin 4 days ago by her pain Dr. She noted that she started having swelling to both lower legs which she did not have prior to starting this. Today she started to have rash on both arms that are now welts and she itches to the areas. Has not noted any rash to trunk. She states that it has been getting worse as the day goes on. Denies any SOB or difficulty swallowing. Onset: Gradual Location: Reports: Upper Extremity, Left, Upper Extremity, Right, Lower Extremity, Left, Lower Extremity, Right Bilateral Feet Pain Score (Numeric/FACES): 5 - Related Data Allergies Allergy/AdvReac Type Severity Reaction Status Date / Time gabapentin Allergy Rash Verified 06/23/21 19:06 sulfamethoxazole Allergy Renal Verified 06/23/21 18:41 [From Bactrim] Insufficiency trimethoprim [From Bactrim] Allergy Renal Verified 06/23/21 18:41 Insufficiency Home Meds: Home Meds Cyclobenzaprine HCl 10 mg PO BID 10/22/19 [History] Topiramate [Topamax] 100 mg PO DAILY 10/22/19 [History] atorvaSTATin Calcium [Atorvastatin Calcium] 40 mg PO DAILY 10/22/19 [History] busPIRone HCl [Buspirone HCl] 15 mg PO DAILY 10/22/19 [History] Propranolol [Inderal] 80 mg PO BID 03/07/21 [History] SUMAtriptan [Imitrex] 100 mg PO ASDIRECTED PRN 03/07/21 [History] Gabapentin [Neurontin] 200 mg PO DAILY 06/23/21 [History] Varenicline Tartrate [Chantix] 2 cap PO DAILY 06/23/21 [History] Past Medical History HEENT History: Reports: None Cardiovascular History: Reports: None, High Cholesterol Respiratory History: Reports: Other (See Below) Other Respiratory History: SEASONAL ALLERGIES Gastrointestinal History: Reports: Other (See Below) Other Gastrointestinal History: UMBILICAL HERNIA Genitourinary History: Reports: None 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: 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, Musculoskeletal History: Reports: Back Pain, Chronic Neurological History: Reports: Migraines Psychiatric History: Reports: Anxiety, Depression Dermatologic History: Reports: None - Infectious Disease History Infectious Disease History: Reports: Chicken Pox - Past Surgical History HEENT Surgical History: Reports: None Cardiovascular Surgical History: Reports: None Respiratory Surgical History: Reports: None GI Surgical History: Reports: Cholecystectomy, Hernia Repair/Other Female Surgical History: Reports: Section, Hysterectomy Neurological Surgical History: Reports: None Musculoskeletal Surgical History: Reports: None Social & Family History - Family History Family Medical History: No Pertinent Family History - Tobacco Use Tobacco Use Status *Q: Current Every Day Tobacco User Years of Tobacco use: 30 Packs/Tins Daily: 0.5 - Caffeine Use Caffeine Use: Reports: Soda - Recreational Drug Use Recreational Drug Use: No ED ROS ALLERGIC REACTION - Review of Systems Review Of Systems: See Below Constitutional: Denies: Fever, Chills HEENT: Denies: Throat Swelling Respiratory: Denies: Shortness of Breath, Wheezing Cardiovascular: Reports: No Symptoms Skin: Reports: Pruritis, Rash ED EXAM GENERAL NO PERIP PULSE - Physical Exam Exam: See Below Exam Limited By: No Limitations General Appearance: Alert, WD/WN, Mild Distress Throat/Mouth: Normal Inspection, Normal Oropharynx, Normal Voice, No Airway Compromise Head: Atraumatic, Normocephalic Neck: Normal Inspection, Supple Respiratory/Chest: No Respiratory Distress, Lungs Clear, Normal Breath Sounds. No: Wheezing Cardiovascular: Regular Rate, Rhythm Extremities: Pedal Edema (2+ edema noted bilaterally. Non pitting. from mid moreau to ankles.) Neurological: Alert, Oriented Skin Exam: Warm, Dry, Rash (Has red moiz rash to both of her arms. Legs have fine rash bilaterally. No open areas. NO rash noted to trunk.) Course - Vital Signs Last Recorded V/S: Last Vital Signs Temp 97.9 F 06/23/21 18:46 Pulse 79 06/23/21 18:46 Resp 16 06/23/21 18:46 BP 135/61 06/23/21 18:46 Pulse Ox 98 06/23/21 18:46 - Orders/Labs/Meds Meds: Medications Discontinued Medications Generic Name Dose Route Start Last Admin Trade Name Freq PRN Reason Stop Dose Admin Methylprednisolone Acetate 80 mg 06/23/21 19:04 06/23/21 19:10 Methylprednisolone Acetate 80 Mg/Ml Sdv IM 06/23/21 19:05 80 mg ONETIME ONE Administration Departure - Departure Time of Disposition: 19:15 Disposition: Home, Self-Care 01 Condition: Good Clinical Impression: Allergic reaction caused by a drug Qualifiers: Encounter type: initial encounter Qualified Code(s): T78.40XA - Allergy, unspecified, initial encounter - Discharge Information *PRESCRIPTION DRUG MONITORING PROGRAM REVIEWED*: Not Applicable *COPY OF PRESCRIPTION DRUG MONITORING REPORT IN PATIENT ISAAC: Not Applicable Instructions: Drug Rash Forms: ED Department Discharge Additional Instructions: Benadryl orally or topically as needed for discomfort elevate legs for the swelling call provider who started you on the gabapentin and as for alternate meds. Recheck if rash does not improve. Sepsis Event Note (ED) - Evaluation Sepsis Screening Result: No Definite Risk - Focused Exam Vital Signs: Vital Signs Temp Pulse Resp BP Pulse Ox 06/23/21 18:46 97.9 F 79 16 135/61 98 - Problem List & Annotations (1) Allergic reaction caused by a drug SNOMED Code(s): 932675809 Code(s): T78.40XA - ALLERGY, UNSPECIFIED, INITIAL ENCOUNTER Status: Acute Priority: High Qualifiers: Encounter type: initial encounter Qualified Code(s): T78.40XA - Allergy, unspecified, initial encounter - Problem List Review Problem List Initiated/Reviewed/Updated: Yes
[2021-06-23] MEDS: methylPREDNISolone Acetate 80 MG/ML SDV IM ONE (19:10)
== END 2021-06-23 19:20 | disposition home or self-care (01) ==
LOC: CC.ED 18:39
DX: M79.89 Other specified soft tissue disorders (principal); R21 Rash and other nonspecific skin eruption; T42.6X5A Adverse effect of other antiepileptic and sedative-hypnotic drugs, initial encounter; E78.00 Pure hypercholesterolemia, unspecified; Z88.8 Allergy status to other drugs, medicaments and biological substances; Z88.2 Allergy status to sulfonamides; Z72.0 Tobacco use; Z79.899 Other long term (current) drug therapy
CPT/HCPCS: 96372; 99283; J1040

== ENCOUNTER 2021-10-02 11:14 | Emergency (ER) | payer MEDICAID ==
[2021-10-02] MEDS ORDERED: Nitroglycerin 0.4 MG Tab.SL SL PRN (11:22)
[2021-10-02] MEDS ORDERED: Aspirin 325 MG Tab PO ONE (11:22)
[2021-10-02] MEDS ORDERED: Aspirin 81 MG Tab.Chew PO ONE (11:29)
[2021-10-02 11:41] LABS: CHLORIDE,CL 105 mEq/L (98-106); SODIUM,NA 139 mEq/L (136-145)
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
[2021-10-02 11:46] LABS: PTT,PARTIAL THROMBOPLSTIN TIME 23.2 SEC (23.2-32.3)
[2021-10-02] MEDS ORDERED: Enoxaparin 100 MG/1 ML Syringe SUBCUT STA (12:45)
[2021-10-02] MEDS ORDERED: Nitroglycerin 2% Oint 1 GM UD Packet TOP PRN (13:14)
== END 2021-10-02 13:39 ==
LOC: CC.ED 11:14
DX: I21.4 Non-ST elevation (NSTEMI) myocardial infarction (principal); E78.00 Pure hypercholesterolemia, unspecified; Z87.891 Personal history of nicotine dependence; Z88.6 Allergy status to analgesic agent; Z88.2 Allergy status to sulfonamides; Z88.1 Allergy status to other antibiotic agents; Z79.82 Long term (current) use of aspirin; Z79.899 Other long term (current) drug therapy; Z20.822 Contact with and (suspected) exposure to COVID-19
CPT/HCPCS: 36415; 71046; 80053; 82550; 83615; 83690; 83735; 84484; 85027; 85610; 85730; 93005; 96372; 99285; A9270-GY; J1650; U0002